=== PATIENT | female | born 1995 | race Caucasian/White ===

== ENCOUNTER 2019-10-03 20:01 | Emergency (ER) | payer MEDICAID, BC ==
[~2019-10-03] VITALS: Ht 167.6 cm; Wt 90.7 kg
[2019-10-03 20:03] VITALS: BP 138/90
--- NOTE | 2019-10-03 20:03 | NUR ---
TO BED # 07 AMBULATORY
--- NOTE | 2019-10-03 20:19 | NUR ---
Dr. Carson examining patient.
[2019-10-03] MEDS ORDERED: ONDANSETRON 4 MG ODT PO ONE (20:25)
[2019-10-03] MEDS ORDERED: PHENAZOPYRIDINE 100 MG TAB PO ONE (20:25)
[2019-10-03] MEDS ORDERED: SULFAMETH/TRIMETH DS 800/160MG 1 TAB PO ONE (20:25)
--- NOTE | 2019-10-03 21:21 | NUR ---
PATIENT AWAKE, RESPONSIVE AND COMPLIANT OF 8/10 PAIN ON URINATION. pATIENT SEEN BY THE ER DOCTOR AND ORDERS WERE CARRIED OUTAS PER ORDER.
[2019-10-03 21:36] VITALS: BP 120/70
--- NOTE | 2019-10-03 21:39 | NUR ---
DISCHARGE INSTRUCTIONS COMPLETED, PATIENT VERBALIZED UNDERSTANDING. PAPER WORK SIGNED BY PATIENT, SAME GIVEN TO HER WITH HER PRESCRIPTIONS. PATIENT IN A STABLE CONDITION, WALKED OFF THE ED WITH HER SON.
== END 2019-10-03 21:39 | disposition home or self-care (01) ==
LOC: MED 20:01
DX: N39.0 Urinary tract infection, site not specified (principal); Z98.890 Other specified postprocedural states
CPT/HCPCS: 81002; 81025; 99284; Q0162